=== PATIENT | female | born 1970 | race Hispanic/Latino ===

== ENCOUNTER 2025-07-13 05:40 | Day surgery (SDC) | payer MEDICARE ==
[~2025-07-13] VITALS: Ht 157.5 cm; Wt 93.0 kg
[2025-07-13] VITALS (11 sets, daily range): BP systolic 95–132; BP diastolic 54–78; PULSE 69–77; RESP 14–16; TEMP 96.9–98.2
[~2025-07-13 05:40] MED LIST: DRON400T7 PO; DULO60CA64 PO; FURO20TA4 PO; INSU100I24 SQ; MECL-226 PO; METF-444 PO; PANT40TA54 PO; PREG300C PO; TIRZ7.5P SQ; WARF-67 PO; WARF4TAB72 PO
[2025-07-13] MEDS: 0.9%NACL 1000ML 1,000 ML IV ONE (06:31)
[2025-07-13] MEDS ORDERED: LIDOCAINE HCL 1% 20 ML VIAL ONE (07:11)
--- NOTE | 2025-07-13 08:15 | NUR ---
INSTRUCTED PATIENT TO RESUME LOVENOX TONIGHT BRIDGE TO COUMADIN STARTING 07/14/[address] THOMPSON. PATIENT AND VERBALIZED UNDERSTANDING.
== END 2025-07-13 08:33 | disposition home or self-care (01) ==
LOC: DAH 05:40 → ENDO 05:40
PROVIDERS: ATTEND Internal Medicine Gastroenterology
DX: K52.9 Noninfective gastroenteritis and colitis, unspecified (principal); K29.50 Unspecified chronic gastritis without bleeding; K21.00 Gastro-esophageal reflux disease with esophagitis, without bleeding; K31.89 Other diseases of stomach and duodenum; R11.0 Nausea; J45.909 Unspecified asthma, uncomplicated; I10 Essential (primary) hypertension; F41.9 Anxiety disorder, unspecified; F32.A Depression, unspecified; I25.2 Old myocardial infarction; M19.90 Unspecified osteoarthritis, unspecified site; M79.7 Fibromyalgia; E11.40 Type 2 diabetes mellitus with diabetic neuropathy, unspecified; Z85.42 Personal history of malignant neoplasm of other parts of uterus; Z86.0100 Personal history of colon polyps, unspecified; Z95.0 Presence of cardiac pacemaker; Z90.710 Acquired absence of both cervix and uterus; Z79.01 Long term (current) use of anticoagulants; Z79.899 Other long term (current) drug therapy
CPT/HCPCS: 43239; 45380; 82948; J2704; J7030; A4215; A4620; J3490